=== PATIENT | female | born 1985 | race Caucasian/White ===

== ENCOUNTER 2016-07-03 14:46 | Emergency (ER) | payer BC, OTHER ==
[2016-07-03 15:01] VITALS: TEMP 98.8; BMI 30.2
--- NOTE | 2016-07-03 15:36 | PDOC ---
History of Present Illness - General History Source: Patient Exam Limitations: No Limitations - History of Present Illness Initial Comments: 07/03/16 15:47 The patient is a 31 year old female (5-6 weeks A1) with no significant past medical history who presents to the ED with complaints of vaginal bleeding for several hours. The patient reports light vaginal spotting with associated abdominal cramping. The patient reports she had a miscarriage at 7 weeks in the past. The patient reports her last menstrual period was on 05/26/16. Denies fevers or chills. Denies nausea, vomiting, or diarrhea. Denies dysuria or difficulty urinating. Denies any other symptoms. <Jabari Ham - Last Filed: 07/03/16 18:12> <Roman Epps - Last Filed: 07/03/16 18:43> - General Chief Complaint: Vaginal Bleeding Stated Complaint: 5-6 WEEKS /VAGINAL BLEEDING Time Seen by Provider: 07/03/16 15:31 Past History <Jabari Ham - Last Filed: 07/03/16 18:12> - Past Medical History Other medical history: DENIES. - Reproductive History (#): 3 Para: 0 Cervical CA: No Dysfunctional Uterine Bleeding: No Ectopic : No Endometrial CA: No Polycystic Ovaries: No Therapeutic (s) & number: No Tubal Ligation: No Spontaneous : 2 - Immunization History Td Vaccination: No Immunization Up to Date: Yes - Psycho/Social/Smoking Cessation Hx Anxiety: No Suicidal Ideation: No Smoking History: Never smoked Have you smoked in the past 12 months: No Number of Cigarettes Smoked Daily: 0 Hx Alcohol Use: Yes (OCC) Drug/Substance Use Hx: No Substance Use Type: Alcohol <Roman Epps - Last Filed: 07/03/16 18:43> - Past Medical History Allergies/Adverse Reactions: Allergies Allergy/AdvReac Type Severity Reaction Status Date / Time No Known Drug Allergies Allergy Verified 07/03/16 14:57 Home Medications: Ambulatory Orders NK [No Known Home Medication] 07/03/16 Review of Systems - Review of Systems Able to Perform ROS?: Yes Comments:: 07/03/16 15:48 GENERAL/CONSTITUTIONAL: No fever or chills. No weakness. HEAD, EYES, EARS, NOSE AND THROAT: No change in vision. No ear pain or discharge. No sore throat. CARDIOVASCULAR: No chest pain or shortness of breath. RESPIRATORY: No cough, wheezing, or hemoptysis. GASTROINTESTINAL: + abdominal cramping. No nausea, vomiting, diarrhea or constipation. GENITOURINARY:+ vaginal bleeding. No dysuria, frequency, or change in urination. MUSCULOSKELETAL: No joint or muscle swelling or pain. No neck or back pain. SKIN: No rash NEUROLOGIC: No headache, vertigo, loss of consciousness, or change in strength/ sensation. ENDOCRINE: No increased thirst. No abnormal weight change. HEMATOLOGIC/LYMPHATIC: No anemia, easy bleeding, or history of blood clots. ALLERGIC/IMMUNOLOGIC: No hives or skin allergy. All Other Systems: Reviewed and Negative <Jabari Ham - Last Filed: 07/03/16 18:12> *Physical Exam - Vital Signs Last Vital Signs Temp Pulse Resp BP Pulse Ox 98.8 F 93 H 19 128/78 98 07/03/16 14:57 07/03/16 14:57 07/03/16 14:57 07/03/16 14:57 07/03/16 14:57 - Physical Exam Comments: 07/03/16 15:48 GENERAL: Awake, alert, and fully oriented, in no acute distress HEAD: No signs of trauma EYES: PERRLA, EOMI, sclera anicteric, conjunctiva clear ENT: Auricles normal inspection, hearing grossly normal, nares patent, oropharynx clear without exudates. Moist mucosa NECK: Normal ROM, supple, no lymphadenopathy, JVD, or masses LUNGS: Breath sounds equal, clear to auscultation bilaterally. No wheezes, and no crackles HEART: Regular rate and rhythm, normal S1 and S2, no murmurs, rubs or gallops ABDOMEN: Soft, nontender, normoactive bowel sounds. No guarding, no rebound. No masses EXTREMITIES: Normal range of motion, no edema. No clubbing or cyanosis. No cords, erythema, or tenderness NEUROLOGICAL: Cranial nerves II through XII grossly intact. Normal speech, normal gait SKIN: Warm, Dry, normal turgor, no rashes or lesions noted. PELVIC: pelvic exam was not performed. Patient reports slight vaginal spotting. <Jabari Ham - Last Filed: 07/03/16 18:12> - Vital Signs Last Vital Signs Temp Pulse Resp BP Pulse Ox 98.8 F 93 H 19 128/78 98 07/03/16 14:57 07/03/16 14:57 07/03/16 14:57 07/03/16 14:57 07/03/16 14:57 <Roman Epps - Last Filed: 07/03/16 18:43> ED Treatment Course - LABORATORY CBC & Chemistry Diagram: 07/03/16 15:43 07/03/16 15:43 - RADIOLOGY Radiograph Interpretation: 07/03/16 18:12 EXAM: ULTRASOUND PELVIS, COMPLETE AND TRANSVAGINAL ULTRASOUND AND DUPLEX SCAN PELVIS, INCOMPLETE IMPRESSION: No ovarian torsion. Color flow with appropriate arterial waveforms bilaterally. No free fluid. Small 2.6 cm sac-like hypoechoic focus in uterine fundus, without discrete yolk sac or pole. Endometrial stripe complex 2 mm thick. No adnexal masses appreciated. Findings could represent early gestation, but advise correlation with serial quantitative beta-hCG and follow- up ultrasound as clinically indicated to exclude possibility of nonvisualized ectopic . Unremarkable visualized portion of bladder. Reported by: Imaging corporate concierge, Lulu Tony M.D <Jabari Ham - Last Filed: 07/03/16 18:12> - LABORATORY CBC & Chemistry Diagram: 07/03/16 15:43 07/03/16 15:43 <Roman Epps - Last Filed: 07/03/16 18:43> *DC/Admit/Observation/Transfer - Attestations Scribe Attestion: 07/03/16 15:48 Documentation prepared by Jabari Ham, acting as hospitalist medical director for Roman Epps MD <Jabari Ham - Last Filed: 07/03/16 18:12> - Discharge Dispostion Admit: No - Attestations Physician Attestion: 07/03/16 15:36 I, Dr. Roman Epps, attest that this document has been prepared under my direction and personally reviewed by me in its entirety. I further attest, that it accurately reflects all work, treatment, procedures and medical decision -making performed by me. <Roman Epps - Last Filed: 07/03/16 18:43> Diagnosis at time of Disposition: Threatened in early - Discharge Dispostion Disposition: HOME Condition at time of disposition: Good - Patient Instructions Printed Discharge Instructions: DI for Miscarriage, DI for Threatened Additional Instructions: Inicolás, Sorry that you have to go through this. Keep your appointment- take all the labs and the ultrasound results with you. Bob- Dr. Roman Epps
[2016-07-03 16:14] LABS: BASOPHIL 0.7 % (0-2.0); EOSINOPHIL 1.9 % (0-4.5); MCH 25.8 pg (25.7-33.7); MCHC 33.4 g/dl (32.0-36.0); MEAN PLT VOLUME 8.5 fl (7.5-11.1); NEUTROPHILS 58.9 % (42.8-82.8); PLATELET COUNT 263 K/MM3 (134-434); RDW 13.3 % (11.6-15.6)
[2016-07-03 16:16] LABS: URINE APPEARANCE CLOUDY; URINE BILIRUBIN NEGATIVE (NEGATIVE); URINE COLOR YELLOW; URINE GLUCOSE (UA) NEGATIVE (NEGATIVE); URINE KETONE NEGATIVE (NEGATIVE); URINE NITRITE NEGATIVE (NEGATIVE); URINE UROBILINOGEN NEGATIVE E.U./dl (0.2-1.0)
[2016-07-03 16:31] LABS: URINE BLOOD 3+ (NEGATIVE); URINE LEUK ESTERASE 3+ (NEGATIVE); URINE PROTEIN 1+ (NEGATIVE)
[2016-07-03 16:32] LABS: URINE BACTERIA RARE /hpf (NONE SEEN); URINE RBC 3 /hpf (0-3); URINE WBC 6 /hpf (3-5)
[2016-07-03 17:00] LABS: ALK PHOS 101 U/L (45-117); ANION GAP 7 (8-16); BILIRUBIN,TOTAL 0.4 mg/dL (0.2-1.0); CALCIUM 8.8 mg/dL (8.5-10.1); CO2 27 mmol/L (21-32); CREATININE 0.9 mg/dL (0.55-1.02); GLUCOSE,RANDOM 88 mg/dL (74-106); SGOT/AST 15 U/L (15-37); SGPT/ALT 20 U/L (12-78); TOT PROT 7.5 g/dl (6.4-8.2)
[2016-07-03] MEDS ORDERED: RHO(D) IMMUNE GLOBULIN 1,500 UNIT DISP.SYRIN IM ONE (18:26)
[2016-07-03 18:29] VITALS: BP 119/73; PULSE 90
== END 2016-07-03 19:40 | disposition home or self-care (01) ==
LOC: JER 14:46
PROC: 3E0234Z Introduction of Serum, Toxoid and Vaccine into Muscle, Percutaneous Approach (ICD-10-PCS; principal; 2016-07-03)
DX: O20.0 Threatened abortion (principal); Z3A.01 Less than 8 weeks gestation of pregnancy; Z29.13 Encounter for prophylactic Rho(D) immune globulin
CPT/HCPCS: 36415; 76817-TC; 80053; 81003; 81015; 84702; 85025; 85027; 86850; 86900; 86901; 86999; 87086; 99284-25; J1561

== ENCOUNTER 2017-03-12 20:11 | Emergency (ER) | payer BC, OTHER ==
[2017-03-12 20:22] VITALS: BP 124/77; PULSE 111; TEMP 98; BMI 28.7
[2017-03-12 20:47] LABS: BASOPHIL 0.4 % (0-2.0); EOSINOPHIL 1.8 % (0-4.5); MCH 25.9 pg (25.7-33.7); MEAN CELL VOLUME 78.4 fl (80-96); MEAN PLT VOLUME 8.2 fl (7.5-11.1); NEUTROPHILS 68.8 % (42.8-82.8); PLATELET COUNT 336 K/MM3 (134-434); RDW 13.4 % (11.6-15.6); WHITE BLOOD COUNT 18.7 K/mm3 (4.0-10.0)
[2017-03-12 21:09] LABS: ALBUMIN 3.6 g/dl (3.4-5.0); ANION GAP 7 (8-16); BILIRUBIN,TOTAL 0.3 mg/dL (0.2-1.0); CALCIUM 8.8 mg/dL (8.5-10.1); CO2 27 mmol/L (21-32); CREATININE 0.7 mg/dL (0.55-1.02); GLUCOSE,RANDOM 81 mg/dL (74-106); SGOT/AST 15 U/L (15-37); SGPT/ALT 34 U/L (12-78); TOT PROT 7.6 g/dl (6.4-8.2)
[2017-03-12 21:24] LABS: ALK PHOS 101 U/L (45-117)
[2017-03-12 21:25] LABS: URINE APPEARANCE CLEAR; URINE BILIRUBIN NEGATIVE (NEGATIVE); URINE BLOOD 2+ (NEGATIVE); URINE COLOR STRAW; URINE GLUCOSE (UA) NEGATIVE (NEGATIVE); URINE KETONE NEGATIVE (NEGATIVE); URINE NITRITE NEGATIVE (NEGATIVE); URINE PROTEIN NEGATIVE (NEGATIVE); URINE UROBILINOGEN NEGATIVE mg/dL (0.2-1.0)
[2017-03-12 21:28] LABS: URINE BACTERIA RARE /hpf (NONE SEEN); URINE RBC 1 /hpf (0-3); URINE WBC 1 /hpf (3-5)
--- NOTE | 2017-03-12 21:52 | PDOC ---
History of Present Illness - General History Source: Patient, Old Records Exam Limitations: No Limitations - History of Present Illness Initial Comments: 03/12/17 21:52 The patient is a 31 year old female who is currently 8.5 weeks , A5 , with a significant past medical history of 5 miscarriages, who presents to the emergency department with vaginal bleeding. She reports that her history of miscarriages prompted her physicians to test her for lupus and protein S deficiency, which were all negative. She denies any other kind of symptoms. It is noted that the patient received her Rhogam Feb 22 2017 for this at [facility]. The patient denies chest pain, shortness of breath, headache and dizziness. Denies fever, chills, nausea, vomit, diarrhea and constipation. Denies dysuria, frequency and urgency. Allergies: None Past surgical history: None reported Social history: No alcohol, tobacco or drug use reported PMD - Dr. Polo <Guillaume Patino - Last Filed: 03/12/17 21:52> <Ashley Martinez - Last Filed: 03/12/17 23:49> - General Chief Complaint: Vaginal Bleeding Stated Complaint: VAGINAL BLEEDING Time Seen by Provider: 03/12/17 20:26 Past History <Guillaume Patino - Last Filed: 03/12/17 21:52> - Past Medical History COPD: No - Reproductive History Is Patient Now?: Yes (#): 3 Para: 0 Cervical CA: No Dysfunctional Uterine Bleeding: No Ectopic : No Endometrial CA: No Polycystic Ovaries: No Therapeutic (s) & number: No Tubal Ligation: No Spontaneous : 2 - Immunization History Td Vaccination: No Immunization Up to Date: Yes - Suicide/Smoking/Psychosocial Hx Smoking History: Never smoked Have you smoked in the past 12 months: No Number of Cigarettes Smoked Daily: 0 Hx Alcohol Use: Yes (OCC) Drug/Substance Use Hx: No Substance Use Type: None <Ashley Martinez - Last Filed: 03/12/17 23:49> - Past Medical History Allergies/Adverse Reactions: Allergies Allergy/AdvReac Type Severity Reaction Status Date / Time No Known Drug Allergies Allergy Verified 03/12/17 20:17 Home Medications: Ambulatory Orders Aspirin [ASA -] 81 mg PO DAILY 03/12/17 Enoxaparin [Lovenox -] 40 mg SQ DAILY 03/12/17 Progesterone (Micronized) [Prometrium (Nf)] mg PO ASDIR 03/12/17 Review of Systems - Review of Systems Able to Perform ROS?: Yes Comments:: 03/12/17 21:53 GENERAL/CONSTITUTIONAL: No fever or chills. No weakness. HEAD, EYES, EARS, NOSE AND THROAT: No change in vision. No ear pain or discharge. No sore throat.- CARDIOVASCULAR: No chest pain or shortness of breath RESPIRATORY: No cough, wheezing, or hemoptysis. GASTROINTESTINAL: No nausea, vomiting, diarrhea or constipation. GENITOURINARY: (+) Vaginal bleeding. No dysuria, frequency, or change in urination. MUSCULOSKELETAL: No joint or muscle swelling or pain. No neck or back pain. SKIN: No rash NEUROLOGIC: No headache, vertigo, loss of consciousness, or change in strength/ sensation. ENDOCRINE: No increased thirst. No abnormal weight change HEMATOLOGIC/LYMPHATIC: No anemia, easy bleeding, or history of blood clots. ALLERGIC/IMMUNOLOGIC: No hives or skin allergy. <Guillaume Patino - Last Filed: 03/12/17 21:52> *Physical Exam - Vital Signs Last Vital Signs Temp Pulse Resp BP Pulse Ox 98 F 111 H 20 124/77 100 03/12/17 20:21 03/12/17 20:21 03/12/17 20:21 03/12/17 20:21 03/12/17 20:21 - Physical Exam Comments: 03/12/17 21:53 GENERAL: Awake, alert, and fully oriented, in no acute distress HEAD: No signs of trauma, normocephalic, atraumatic EYES: PERRLA, EOMI, sclera anicteric, conjunctiva clear ENT: Auricles normal inspection, hearing grossly normal, nares patent, oropharynx clear without exudates. Moist mucosa NECK: Normal ROM, supple, no lymphadenopathy, JVD, or masses LUNGS: No distress, speaks full sentences, clear to auscultation bilaterally HEART: Regular rate and rhythm, normal S1 and S2, no murmurs, rubs or gallops, peripheral pulses normal and equal bilaterally. ABDOMEN: Soft, nontender, normoactive bowel sounds. No guarding, no rebound. No masses EXTREMITIES : Normal inspection, Normal range of motion, no edema. No clubbing or cyanosis. NEUROLOGICAL: Cranial nerves II through XII grossly intact. Normal speech, normal gait, no focal sensorimotor deficits SKIN: Warm, Dry, normal turgor, no rashes or lesions noted. <Guillaume Patino - Last Filed: 03/12/17 21:52> - Vital Signs Last Vital Signs Temp Pulse Resp BP Pulse Ox 98 F 111 H 20 124/77 100 03/12/17 20:21 03/12/17 20:21 03/12/17 20:21 03/12/17 20:21 03/12/17 20:21 <JuanAshley Consuelo - Last Filed: 03/12/17 23:49> ED Treatment Course - LABORATORY CBC & Chemistry Diagram: 03/12/17 20:25 03/12/17 20:25 - ADDITIONAL ORDERS Additional order review: Laboratory Results 03/12/17 03/12/17 21:20 20:25 Sodium 136 Potassium 4.3 Chloride 102 Carbon Dioxide 27 Anion Gap 7 L BUN 13 D Creatinine 0.7 D Creat Clearance w eGFR > 60 Random Glucose 81 Calcium 8.8 Total Bilirubin 0.3 D AST 15 ALT 34 D Alkaline Phosphatase 101 Total Protein 7.6 Albumin 3.6 Beta HCG, Quant 57765.3 Urine Color Straw Urine Appearance Clear Urine pH 6.0 Ur Specific Maryneal 1.009 Urine Protein Negative Urine Glucose (UA) Negative Urine Ketones Negative Urine Blood 2+ H Urine Nitrite Negative Urine Bilirubin Negative Urine Urobilinogen Negative Urine WBC (Auto) 1 Urine RBC (Auto) 1 Ur Epithelial Cells Rare Urine Bacteria Rare 03/12/17 20:25 RBC 4.78 MCV 78.4 L MCHC 33.0 RDW 13.4 MPV 8.2 Neutrophils % 68.8 Lymphocytes % 17.0 D Monocytes % 12.0 H Eosinophils % 1.8 Basophils % 0.4 <Guillaume Patino - Last Filed: 03/12/17 21:52> - LABORATORY CBC & Chemistry Diagram: 03/12/17 20:25 03/12/17 20:25 - ADDITIONAL ORDERS Additional order review: Laboratory Results 03/12/17 03/12/17 21:20 20:25 Sodium 136 Potassium 4.3 Chloride 102 Carbon Dioxide 27 Anion Gap 7 L BUN 13 D Creatinine 0.7 D Creat Clearance w eGFR > 60 Random Glucose 81 Calcium 8.8 Total Bilirubin 0.3 D AST 15 ALT 34 D Alkaline Phosphatase 101 Total Protein 7.6 Albumin 3.6 Beta HCG, Quant 48847.3 Urine Color Straw Urine Appearance Clear Urine pH 6.0 Ur Specific [place]ne[place] 1.009 Urine Protein Negative Urine Glucose (UA) Negative Urine Ketones Negative Urine Blood 2+ H Urine Nitrite Negative Urine Bilirubin Negative Urine Urobilinogen Negative Urine WBC (Auto) 1 Urine RBC (Auto) 1 Ur Epithelial Cells Rare Urine Bacteria Rare 03/12/17 20:25 RBC 4.78 MCV 78.4 L MCHC 33.0 RDW 13.4 MPV 8.2 Neutrophils % 68.8 Lymphocytes % 17.0 D Monocytes % 12.0 H Eosinophils % 1.8 Basophils % 0.4 - RADIOLOGY Radiology Studies Ordered: Category Date Time Status TRANSVAGINAL US PREG [US] Stat Ultrasound 03/12/17 20:52 Ordered <Ashley Martinez - Last Filed: 03/12/17 23:49> Medical Decision Making - Medical Decision Making 03/12/17 23:44 31-year-old female presents with some vaginal bleeding. She has a past medical history of multiple miscarriages and has a had a workup for coagulopathy. She is currently on Lovenox, aspirin and progesterone Past medical history is 6 para 0. She is followed by [facility] in [place] a Dr. Polo ChristianaCareG is greater than 85,000 Disposition leukocytosis. Review of systems is NEGATIVE for fever or chills or nausea or vomiting or diarrhea or chest pain or abdominal pain or dysuria This ultrasound shows a single live IUP 8 weeks 1 day, heart tones 158, cervix is closed. Patient is Rh-. It is important to note that she already received RHOGRAM on February 22 for this at [facility] Plan patient already has an appointment with [facility] this Monday. 03/12/17 23:49 <Ashley Martinez - Last Filed: 03/12/17 23:49> *DC/Admit/Observation/Transfer - Attestations Scribe Attestion: 03/12/17 21:54 Documentation prepared by Guillaume Patino, acting as director of graduate medical education for Ashley Martinez MD <Guillaume Patino - Last Filed: 03/12/17 21:52> <Ashley Martinez - Last Filed: 03/12/17 23:49> Diagnosis at time of Disposition: Threatened in early - Discharge Dispostion Disposition: HOME Condition at time of disposition: Stable - Patient Instructions Printed Discharge Instructions: DI for Threatened Additional Instructions: please keep your appointment on Monday with your field sales engineer
[2017-03-13 11:45] LABS: URINE LEUK ESTERASE 2+ (NEGATIVE)
== END 2017-03-12 23:51 | disposition home or self-care (01) ==
LOC: JER 20:11
DX: O26.891 Other specified pregnancy related conditions, first trimester (principal); O20.0 Threatened abortion; O46.001 Antepartum hemorrhage with coagulation defect, unspecified, first trimester; Z3A.08 8 weeks gestation of pregnancy; Z79.01 Long term (current) use of anticoagulants; Z79.82 Long term (current) use of aspirin
CPT/HCPCS: 36415; 76801-TC; 80053; 81003; 81015; 84702; 85025; 86850; 86870; 86900; 86901; 86902; 87086; 99283-25

== ENCOUNTER 2017-03-24 18:39 | Emergency (ER) | payer BC, OTHER ==
--- NOTE | 2017-03-24 18:54 | PDOC ---
Rapid Medical Evaluation Medical Evaluation: Allergies Allergy/AdvReac Type Severity Reaction Status Date / Time No Known Drug Allergies Allergy Verified 03/12/17 20:17 03/24/17 18:51 I have performed a brief in-person evaluation of this patient. The patient presents with a chief complain of: vaginal d/c just prior to arrival LMP: 01/09/2017 Last US: 03/21/2017 Pertinent physical exam findings:pelvic cramping, L/S CTA, HR RRR S1S2 I have ordered the following: cbc, cmp, ua, beta HCG, US trasvaginal, TS The patient will proceed to the ED for further evaluation.
[2017-03-24 19:11] VITALS: BP 135/78; PULSE 85; TEMP 98.1; BMI 29.6
[2017-03-24 19:12] LABS: BASOPHIL 0.4 % (0-2.0); EOSINOPHIL 1.2 % (0-4.5); MCH 26.1 pg (25.7-33.7); MCHC 33.6 g/dl (32.0-36.0); MEAN CELL VOLUME 77.6 fl (80-96); MEAN PLT VOLUME 7.8 fl (7.5-11.1); NEUTROPHILS 72.4 % (42.8-82.8); PLATELET COUNT 318 K/MM3 (134-434); RDW 13.5 % (11.6-15.6); WHITE BLOOD COUNT 18.7 K/mm3 (4.0-10.0)
[2017-03-24 19:19] LABS: URINE APPEARANCE SLCLOUDY; URINE BILIRUBIN NEGATIVE (NEGATIVE); URINE BLOOD NEGATIVE (NEGATIVE); URINE COLOR LTYELLOW; URINE GLUCOSE (UA) NEGATIVE (NEGATIVE); URINE KETONE NEGATIVE (NEGATIVE); URINE NITRITE NEGATIVE (NEGATIVE); URINE PROTEIN NEGATIVE (NEGATIVE); URINE UROBILINOGEN NEGATIVE mg/dL (0.2-1.0)
[2017-03-24 19:49] LABS: ALBUMIN 3.7 g/dl (3.4-5.0); ALK PHOS 94 U/L (45-117); ANION GAP 6 (8-16); BILIRUBIN,TOTAL 0.2 mg/dL (0.2-1.0); CALCIUM 8.7 mg/dL (8.5-10.1); CO2 27 mmol/L (21-32); CREATININE 0.7 mg/dL (0.55-1.02); GLUCOSE,RANDOM 82 mg/dL (74-106); SGOT/AST 25 U/L (15-37); SGPT/ALT 50 U/L (12-78); TOT PROT 7.7 g/dl (6.4-8.2)
[2017-03-24 20:16] LABS: URINE LEUK ESTERASE 2+ (NEGATIVE)
[2017-03-24 20:34] LABS: URINE RBC 1 /hpf (0-3); URINE WBC 2 /hpf (3-5)
--- NOTE | 2017-03-24 20:59 | PDOC ---
History of Present Illness - General History Source: Patient Exam Limitations: No Limitations - History of Present Illness Initial Comments: The patient is a 31 year old female, (10 weeks A5) with no significant past medical history on an Aspirin regimen, who presents to the emergency department with, flesh colored <5mm vaginal tissue. She reports slight cramping this morning. She denies vaginal bleeding or abdominal pain. She reports her last menses was January 09. She reports a dose of Rhogam a month ago. She denies recent fevers, chills, headache or dizziness. She denies recent nausea, vomit, diarrhea or constipation. She denies recent dysuria, frequency, urgency or hematuria. She denies recent chest pain or shortness of breath. Allergies: NKA Social history: Nonsmoker. Denies EtOH use and recreational drug use. 03/24/17 23:27 <Yamileth Reagan - Last Filed: 03/24/17 23:26> <Willian Fitch - Last Filed: 03/25/17 00:19> - General Chief Complaint: Pain, Acute Stated Complaint: 10 WEEK PREG,CRAMPING Time Seen by Provider: 03/24/17 18:54 Past History <Yamileth Reagan - Last Filed: 03/24/17 23:26> - Past Medical History CVA: No COPD: No - Reproductive History (#): 3 Para: 0 Cervical CA: No Dysfunctional Uterine Bleeding: No Ectopic : No Endometrial CA: No Polycystic Ovaries: No Therapeutic (s) & number: No Tubal Ligation: No Spontaneous : 2 - Immunization History Td Vaccination: No Immunization Up to Date: Yes - Suicide/Smoking/Psychosocial Hx Smoking History: Never smoked Have you smoked in the past 12 months: No Number of Cigarettes Smoked Daily: 0 Hx Alcohol Use: No Drug/Substance Use Hx: No Substance Use Type: None <Willian Fitch - Last Filed: 03/25/17 00:19> - Past Medical History Allergies/Adverse Reactions: Allergies Allergy/AdvReac Type Severity Reaction Status Date / Time No Known Drug Allergies Allergy Verified 03/24/17 18:55 Home Medications: Ambulatory Orders Aspirin [ASA -] 81 mg PO DAILY 03/12/17 Enoxaparin [Lovenox -] 40 mg SQ DAILY 03/12/17 Progesterone (Micronized) [Prometrium (Nf)] mg PO ASDIR 03/12/17 Review of Systems - Review of Systems Able to Perform ROS?: Yes Comments:: CONSTITUTIONAL: No fever, no chills, no fatigue EYES: No visual changes ENT: No ear pain, no sore throat CARDIOVASCULAR: No chest pain, no palpitations RESPIRATORY: No cough, no SOB GI:No abdominal pain, no nausea, no vomiting, no constipation, no diarrhea GENITOURINARY: +flesh colored <5mm vaginal tissue. No dysuria, no frequency, no hematuria MUSKULOSKELETAL: No back pain, no joint pain, no myalgias SKIN: No rash NEURO: No headache 03/24/17 23:29 All Other Systems: Reviewed and Negative <Yamileth Reagan - Last Filed: 03/24/17 23:26> *Physical Exam - Vital Signs Last Vital Signs Temp Pulse Resp BP Pulse Ox 98.1 F 85 16 135/78 100 03/24/17 18:53 03/24/17 18:53 03/24/17 18:53 03/24/17 18:53 03/24/17 18:53 - Physical Exam Comments: 03/24/17 23:11 CONSTITUTIONAL: Well-appearing; well-nourished; in no apparent distress HEAD: Normocephalic; atraumatic EYES: PERRL; EOM intact ENMT: External appears normal; normal oropharynx NECK: Supple; non-tender; no cervical lymphadenopathy CARD: Normal S1, S2; no murmurs, rubs, or gallops RESP: Normal chest excursion with respiration; breath sounds clear and equal bilaterally; no wheezes, rhonchi, or rales ABD: Soft, non-distended; non-tender; no palpable organomegaly, no palpable hernias EXT: Normal ROM in all four extremities; non-tender to palpation; distal pulses intact SKIN: Warm, dry, no rash NEURO: No focal neurological deficiencies. <Yamileth Reagan - Last Filed: 03/24/17 23:26> - Vital Signs Last Vital Signs Temp Pulse Resp BP Pulse Ox 98.1 F 85 16 135/78 100 03/24/17 18:53 03/24/17 18:53 03/24/17 18:53 03/24/17 18:53 03/24/17 18:53 <ConstantineWillian - Last Filed: 03/25/17 00:19> ED Treatment Course - LABORATORY CBC & Chemistry Diagram: 03/24/17 19:00 03/24/17 19:00 - ADDITIONAL ORDERS Additional order review: Laboratory Results 03/24/17 03/24/17 03/24/17 20:15 19:00 19:00 Sodium 135 L Potassium 4.0 Chloride 102 Carbon Dioxide 27 Anion Gap 6 L BUN 9 D Creatinine 0.7 Creat Clearance w eGFR > 60 Random Glucose 82 Calcium 8.7 Total Bilirubin 0.2 D AST 25 D ALT 50 D Alkaline Phosphatase 94 Total Protein 7.7 Albumin 3.7 Beta HCG, Quant 84516.5 Urine Color Urine Appearance Urine pH Ur Specific [place] Urine Protein Urine Glucose (UA) Urine Ketones Urine Blood Urine Nitrite Urine Bilirubin Urine Urobilinogen Ur Leukocyte Esterase Urine WBC (Auto) Urine RBC (Auto) Ur Epithelial Cells Blood Type O NEGATIVE Antibody Screen Positive H 03/24/17 18:50 Sodium Potassium Chloride Carbon Dioxide Anion Gap BUN Creatinine Creat Clearance w eGFR Random Glucose Calcium Total Bilirubin AST ALT Alkaline Phosphatase Total Protein Albumin Beta HCG, Quant Urine Color Ltyellow Urine Appearance Slcloudy Urine pH 6.0 Ur Specific [place] 1.014 Urine Protein Negative Urine Glucose (UA) Negative Urine Ketones Negative Urine Blood Negative Urine Nitrite Negative Urine Bilirubin Negative Urine Urobilinogen Negative Ur Leukocyte Esterase 2+ H Urine WBC (Auto) 2 Urine RBC (Auto) 1 Ur Epithelial Cells Rare Blood Type Antibody Screen 03/24/17 19:00 RBC 4.68 MCV 77.6 L MCHC 33.6 RDW 13.5 MPV 7.8 Neutrophils % 72.4 Lymphocytes % 16.0 Monocytes % 10.0 Eosinophils % 1.2 Basophils % 0.4 <Yamileth Reagan - Last Filed: 03/24/17 23:26> - LABORATORY CBC & Chemistry Diagram: 03/24/17 19:00 03/24/17 19:00 - ADDITIONAL ORDERS Additional order review: Laboratory Results 03/24/17 03/24/17 19:00 18:50 Sodium 135 L Potassium 4.0 Chloride 102 Carbon Dioxide 27 Anion Gap 6 L BUN 9 D Creatinine 0.7 Creat Clearance w eGFR > 60 Random Glucose 82 Calcium 8.7 Total Bilirubin 0.2 D AST 25 D ALT 50 D Alkaline Phosphatase 94 Total Protein 7.7 Albumin 3.7 Urine Color Ltyellow Urine Appearance Slcloudy Urine pH 6.0 Ur Specific [place] 1.014 Urine Protein Negative Urine Glucose (UA) Negative Urine Ketones Negative Urine Blood Negative Urine Nitrite Negative Urine Bilirubin Negative Urine Urobilinogen Negative Urine WBC (Auto) 2 Urine RBC (Auto) 1 Ur Epithelial Cells Rare 03/24/17 19:00 RBC 4.68 MCV 77.6 L MCHC 33.6 RDW 13.5 MPV 7.8 Neutrophils % 72.4 Lymphocytes % 16.0 Monocytes % 10.0 Eosinophils % 1.2 Basophils % 0.4 <Willian Fitch - Last Filed: 03/25/17 00:19> Medical Decision Making - Medical Decision Making 03/25/17 00:17 Patient is a 31-year-old female, 6 para 0 with multiple miscarriages, currently on Lovenox and aspirin presents to the ER after passing a flesh- colored less than 5 mm piece of tissue earlier in the day. Patient denies abdominal pain or vaginal bleeding. In the ER, patient is awake and alert, symptom-free, resting comfortably, tolerates by mouth. Transvaginal such shows an IUP with FH at 10 weeks 5 days. Patient is noted to be O- with high antibody titer likely related to roll gamma administration one month previously. No acute issues are present. Patient has been advised to follow-up with her [facility] as needed and to return immediately for bleeding or severe pain. Patient expressed understanding. Will discharge. <Willian Fitch - Last Filed: 03/25/17 00:19> *DC/Admit/Observation/Transfer - Attestations Scribe Attestion: 03/24/17 23:06 Documentation prepared by Yamileth Reagan, acting as medical case manager for Willian Fitch MD. <Yamileth Reagan - Last Filed: 03/24/17 23:26> - Attestations Physician Attestion: 03/25/17 00:17 The documentation was prepared by the scribe under my direct supervision. I have reviewed the documentation which correctly represents the findings, medical decision-making and critical action taken by me. <Willian Fitch - Last Filed: 03/25/17 00:19> Diagnosis at time of Disposition: Threatened in early - Discharge Dispostion Disposition: HOME Condition at time of disposition: Stable - Referrals Referrals: STAFF,NOT ON [Primary Care Provider] - christian science reader, one week [Other] - Patient Instructions Printed Discharge Instructions: DI for Threatened - Post Discharge Activity
[2017-03-24 23:03] LABS: URINE LEUK ESTERASE 2+ (NEGATIVE)
== END 2017-03-25 00:22 | disposition home or self-care (01) ==
LOC: JER 18:39
DX: O26.891 Other specified pregnancy related conditions, first trimester (principal); Z3A.10 10 weeks gestation of pregnancy; O20.0 Threatened abortion
CPT/HCPCS: 36415; 76817-TC; 80053; 81003; 81015; 84702; 85025; 86850; 86870; 86900; 86901; 86902; 99281-25

== ENCOUNTER 2018-11-29 10:08 | Emergency (ER) | payer OTHER, BC | END 2018-11-29 12:15 | disposition home or self-care (01) | LOC: JERFT 10:08 ==

== ENCOUNTER 2021-09-16 21:15 | Emergency (ER) | payer BC, OTHER ==
[2021-09-16 21:29] VITALS: BP 106/78; PULSE 78; TEMP 98.1; BMI 29.5
[2021-09-16 23:37] LABS: BASO % 0.8 % (0-2.0); EOS % 2.8 % (0-4.5); HEMATOCRIT 36.5 % (32.4-45.2); HEMOGLOBIN 12.4 GM/dL (10.7-15.3); LYMPH % 29.9 % (8-40); MEAN CELL VOLUME 76.5 fl (80-96); MEAN PLT VOLUME 8.3 fl (7.5-11.1); MONO % 11.6 % (3.8-10.2); NEUT % 54.9 % (42.8-82.8); PLATELET COUNT 250 10^3/uL (134-434); RBC 4.76 M/mm3 (3.60-5.2); RDW 13.9 % (11.6-15.6); WHITE BLOOD COUNT 8.2 K/mm3 (4.0-10.0)
[2021-09-17 00:09] LABS: CALCIUM 9.6 mg/dL (8.5-10.1)
[2021-09-17 00:10] LABS: ALBUMIN 4.5 g/dl (3.4-5.0); BLOOD UREA NITROGEN 15.8 mg/dL (7-18)
[2021-09-17 00:13] LABS: CREATININE 0.9 mg/dL (0.55-1.3)
[2021-09-17 00:14] LABS: TOT PROT 8.1 g/dl (6.4-8.2)
[2021-09-17 00:15] LABS: BILIRUBIN,TOTAL 0.7 mg/dL (0.2-1)
== END 2021-09-17 03:25 | disposition home or self-care (01) ==
LOC: JER 21:15
DX: R07.9 Chest pain, unspecified (principal); M54.50 Low back pain, unspecified
CPT/HCPCS: 36415; 71046-TC-FY; 80053; 84484; 85025; 93005; 93010; 99285-25